=== PATIENT | male | born 1955 | race Caucasian/White ===

== ENCOUNTER 2021-11-24 19:01 | Emergency (ER) | payer BC, SELFPAY ==
--- NOTE | 2021-11-24 19:09 | ED_ITS ---
HPI - General Adult General: Chief complaint: Anxiety Stated complaint: ETOH DETOX Time Seen by Provider: 11/24/21 19:03 History of Present Illness: Patient is a 66-year-old male with history chronic alcohol dependence who presents the emergency room requesting for alcohol detoxification. Patient tells me that his last drink was 7 AM this morning and consisted of 2 shots. Baseline, previous drinker drinks 10-14 shots of vodka a day. Patient also tells me that he is currently admitted to [facility] [place] for rehabilitation and was told to come to the ED for medical detoxification. Patient denies any prior history of cirrhosis. Has no other focal complaints including hallucination, diaphoresis, formication, chest pain, shortness breath, palpitation, nausea/vomiting, diarrhea, melena/hematochezia. Patient denies any polysubstance use. Onset: earlier today Duration:ongoing Location:home Severity:moderate Associated symptoms: Deny chest pain, dyspnea, nausea, rash, palpitations or vomiting Review of Systems Const: Denies: fever(s) or chills Eyes: Denies: change in vision ENMT: Denies: mouth pain Card: Denies: chest pain or palpitations Resp: Denies: dyspnea or non-productive cough GI: Denies: abdominal pain, nausea, vomiting or diarrhea : Denies: dysuria Musc: Reports: extremity pain (+R knee pain) and other (+arm tremulousness) Skin/Breast: Denies: rash or new lesions Neuro: Denies: weakness in extremities Psych: Reports: other (Normal mood) Gokul/Lymph: Denies: easy bruising PFS ED PFSH: Medical History Alcohol dependence Surgical History H/O knee surgery Social History Smoking and tobacco status: never smoked Alcohol intake: current Substance/Drug Use: never Physical Exam Const: COMMON NORMALS: alert HENMT: COMMON NORMALS: atraumatic HEAD & SCALP: atraumatic MOUTH: moist mucous membranes not abnormal Eye: COMMON NORMALS: EOMs intact bilaterally and conjunctivae normal CONJUNCTIVA: Yes conjunctivae normal Neck/C-Spine: COMMON NORMALS: full ROM and supple Resp: COMMON NORMALS: normal respiratory effort and clear to auscultation bilaterally AUSCULTATION: clear to auscultation bilaterally Cardio: COMMON NORMALS: regular rate RATE: regular rate GI: COMMON NORMALS: Soft to palpation and non-tender PALPATION: Yes Soft to palpation Extremity: COMMON NORMALS: full ROM OTHER: +mild b/l hand tremulousness Range of motion of the right knee intact, mild knee swelling noted, no erythema/warmth, tenderness with range of motion or any Neuro: SENSORIUM/ORIENTATION: Yes alert MOTOR EXAM: No Abnormal motor strength present and Other motor observations present (no focal motor deficits) Psych: COMMON NORMALS: speech normal SPEECH: Yes normal speech MOOD & AFFECT: Yes euthymic mood Course Vital Signs: Vital signs: Vital Signs Temperature 98.3 F 11/24/21 20:50 Pulse Rate 113 H 11/24/21 20:50 Respiratory Rate 16 11/24/21 20:50 Blood Pressure 134/83 11/24/21 20:50 Pulse Oximetry 98 11/24/21 20:50 MDM - General Adult Medical Decision Making 66-year-old male presenting to the emergency room for alcohol detox. Last drink was earlier today. Patient is noted to have mild tremulousness. CIWA score less than 10 currently. Patient received 720mg of IV phenobarbital over an hour 30 minutes. Patient reports that his withdrawal symptoms significantly improved. Blood work showed mild anion gap. Do not suspect DKA given reassuring glucose and no other presentation. X-ray of the knee negative for any acute fracture or injury. Do not suspect septic joint at this time. Patient is AAOx3, fully responsive. Patient tells me that he is getting her back to [facility]. Patient stable to go back to [facility]. Disposition: Discharge. Patient counseled regarding diagnostic impression, treatment plan. Patient given ED strict return precautions to return for continuation, worsening, or development of new symptoms. Instructed to f/u w/ PCP regarding symptoms today. Patient verbalized understanding. Lab Data : 11/24/21 21:03 11/24/21 19:48 Radiology Impressions Knee X-Ray 11/24/21 20:10 IMPRESSION: No acute findings. Laboratory Results WBC 4.8 10^3/uL (4.0-10.0) 11/24/21 21:03 RBC 3.51 10^6/uL (4.1-5.3) L 11/24/21 21:03 Hgb 11.6 g/dL (11.7-16.6) L 11/24/21 21:03 Hct 34.7 % (42.0-52.0) L 11/24/21 21:03 MCV 98.9 fl (80-94) H 11/24/21 21:03 MCH 33.0 pg (28.0-34.0) 11/24/21 21:03 MCHC 33.4 g/dL (30.0-36.0) 11/24/21 21:03 RDW 16.2 % (12.1-15.1) H 11/24/21 21:03 Plt Count 78 10^3/cmm (130-400) L 11/24/21 21:03 MPV 8.3 fL (7.4-10.4) 11/24/21 21:03 Neut % (Auto) 71.0 % 11/24/21 21:03 Lymph % (Auto) 19.0 % 11/24/21 21:03 Newton % (Auto) 9.4 % 11/24/21 21:03 Eos % (Auto) 0.2 % 11/24/21 21:03 Baso % (Auto) 0.2 % 11/24/21 21:03 Neut # (Auto) 3.40 10^3/uL (1.8-7.7) 11/24/21 21:03 Lymph # (Auto) 0.9 10^3/uL (0.8-4.8) 11/24/21 21:03 Newton # (Auto) 0.5 10^3/uL (0.2-0.9) 11/24/21 21:03 Eos # (Auto) 0.0 10^3/uL (0.0-0.8) 11/24/21 21:03 Baso # (Auto) 0.0 10^3/uL (0.0-0.1) 11/24/21 21:03 Nucleated RBC % (auto) 0 % 11/24/21 21:03 Nucleated RBCs # 0.0 /100WBC 11/24/21 21:03 Sodium 141 mmol/L (136-145) 11/24/21 19:48 Potassium 4.2 mmol/L (3.5-5.1) 11/24/21 19:48 Chloride 98 mmol/L (98-107) 11/24/21 19:48 Carbon Dioxide 22 mmol/L (22-29) 11/24/21 19:48 Anion Gap 25.2 (5-19) H 11/24/21 19:48 BUN 15 mg/dL (8-23) 11/24/21 19:48 Creatinine 0.7 mg/dL (0.7-1.2) 11/24/21 19:48 GFR Calculation 113.5 mL/min (90-130) 11/24/21 19:48 Glucose 127 mg/dL (65-115) H 11/24/21 19:48 Calculated Osmolality 294 mOsm/kg (285-295) 11/24/21 19:48 Calcium 9.4 mg/dL (8.5-10.5) 11/24/21 19:48 Magnesium 1.7 mg/dL (1.7-2.3) 11/24/21 19:48 Imaging Data Other Imaging: Radiologist's impression: [facility] [address] [address] XRay Report Signed Patient: Gerardo Roberts Unit #: [id number] : 1955 Age/Sex: 66 / M ADM Date: 11/24/21 Loc: ER Room/Bed: Attending Dr: Ordering Provider/Ordering MD: Sherry Zhou MD Date of Service: 11/24/21 Procedure(s): [place] [address] Accession Number(s): [id number] Report Number: [id number] PROCEDURE INFORMATION: Exam: XR Right Knee Exam date and time: 11/24/2021 9:04 PM Age: 66 years old Clinical indication: Pain; Right; Prior surgery; Surgery date: 1-6 months; Surgery type: RT. Knee; Additional info: Knee pain TECHNIQUE: Imaging protocol: XR Right knee. Views: 1 or 2 views. COMPARISON: No relevant prior studies available. FINDINGS: Bones/joints: Right total knee arthroplasty noted in expected alignment. Osseous structures are intact. Negative for fracture. Soft tissues: Normal. XR/XR knee RT -2V 87168 IMPRESSION: No acute findings. ? Dictated By: Ochoa Fernandez DO Signed By: Ochoa Fernandez DO Signed Date/Time: 11/24/212151 DD/ 03 Discharge Plan Discharge Patient Disposition: Home Clinical Impression: Alcohol withdrawal syndrome Condition: Stable Discharge Orders: Discharge ED (Routine); Ordered 11/24/21 Ordered By: Sherry Zhou Discharge Diet: Advance as tolerated Discharge Activity: Increase activity as tolerated Patient Instructions: Alcohol Withdrawal (ED) Activity Restrictions/Additional Instructions: Please come back if any seizures, hallucination, shaking, or any new concerning complaints Coding Level of Care Code ED [place] [facility] for Bro Fwd Exam Comprehensive
--- NOTE | 2021-11-24 20:10 | XRR_ITS ---
PROCEDURE INFORMATION: Exam: XR Right Knee Exam date and time: 11/24/2021 9:04 PM Age: 66 years old Clinical indication: Pain; Right; Prior surgery; Surgery date: 1-6 months; Surgery type: RT. Knee; Additional info: Knee pain TECHNIQUE: Imaging protocol: XR Right knee. Views: 1 or 2 views. COMPARISON: No relevant prior studies available. FINDINGS: Bones/joints: Right total knee arthroplasty noted in expected alignment. Osseous structures are intact. Negative for fracture. Soft tissues: Normal. XR/XR knee RT 1-2V 17000 IMPRESSION: No acute findings.
[2021-11-24 20:36] LABS: Anion Gap 25.2 (5-19); Blood Urea Nitrogen 15 mg/dL (8-23); Calcium 9.4 mg/dL (8.5-10.5); Carbon Dioxide 22 mmol/L (22-29); Chloride 98 mmol/L (98-107); Glomerular Filtration Rate 113.5 mL/min (90-130); Glucose 127 mg/dL (65-115); Magnesium 1.7 mg/dL (1.7-2.3); Osmolality Calculated 294 mOsm/kg (285-295); Potassium 4.2 mmol/L (3.5-5.1); Sodium 141 mmol/L (136-145)
[2021-11-24 20:50] VITALS: BP 134/83; PULSE 113; RESP 16; TEMP 36.8; O2SAT 98; BMI 27.3
[2021-11-24 21:18] LABS: Basophils % 0.2 %; Eosinophils % 0.2 %; Hematocrit 34.7 % (42.0-52.0); Hemoglobin 11.6 g/dL (11.7-16.6); Lymphocytes # 0.9 10^3/uL (0.8-4.8); Mean Corpuscular HGB Conc 33.4 g/dL (30.0-36.0); Mean Corpuscular Volume 98.9 fl (80-94); Mean Platelet Volume 8.3 fL (7.4-10.4); Monocytes # 0.5 10^3/uL (0.2-0.9); Monocytes % 9.4 %; Nucleated Red Blood Cells % 0 %; Platelet Count 78 10^3/cmm (130-400); Red Blood Count 3.51 10^6/uL (4.1-5.3); Red Cell Distribution Width 16.2 % (12.1-15.1); White Blood Count 4.8 10^3/uL (4.0-10.0)
== END 2021-11-24 22:17 | disposition home or self-care (01) ==
PROVIDERS: Emergency Provider Emergency Medicine
DX: F10.239 Alcohol dependence with withdrawal, unspecified (principal); Y90.9 Presence of alcohol in blood, level not specified; M25.561 Pain in right knee; R25.1 Tremor, unspecified
CPT/HCPCS: 36415; 73560; 80048; 83735; 85025; 96365; 96366; 96375; 99284; J7030